=== PATIENT | male | born 1960 | race Caucasian/White ===

== ENCOUNTER 2021-09-24 22:29 | Emergency (ER) | payer OTHER ==
[~2021-09-24 22:29] MED LIST: COUMADIN10 MG PO; COUMADIN4 MG PO; DAILY VITAMIN1 TAB PO; DUO-KAPS1 CAP PO; GLUCOSAMINE & C1 CA1 PO; IBUPRIN200 MG PO; LEVAQUIN 250MG250 MG PO; LIPITOR 10MG10 MG PO; LIPITOR20 MG PO; MULTI VITAMINS1 TAB PO; NORCO 325 MG-51 TAB PO; NORCO 325 MG-7.1 TAB PO; OMEGA 31000 MG PO; PYRIDIUM 100MG100 MG PO; SUPER B COMPLEX1 TA2 PO; TYLENOL 325MG325 MG PO; VITAMIN C500 MG PO; VITAMIN D32000 I1 PO
[2021-09-24 23:25] VITALS: TEMP 97.9
[2021-09-24] MEDS ORDERED: VALIUM 10MG10 MG/TAB PO (23:52)
[2021-09-25 00:11] VITALS: BP 151/97; PULSE 73
== END 2021-09-25 00:11 | disposition home or self-care (01) ==
LOC: COL.ER 22:29
DX: M62.830 Muscle spasm of back (principal); E11.9 Type 2 diabetes mellitus without complications; I10 Essential (primary) hypertension; Z79.84 Long term (current) use of oral hypoglycemic drugs; Z88.6 Allergy status to analgesic agent

== ENCOUNTER 2024-05-26 23:39 | Emergency (ER) | payer MEDICARE, OTHER ==
[~2024-05-26] VITALS: Ht 167.6 cm; Wt 95.5 kg
[~2024-05-26 23:39] MED LIST changes: +VALIUM 10MG10 MG/TAB PO
[2024-05-26 23:51] VITALS: TEMP 97.9
[2024-05-27] MEDS ORDERED: ANUSOL-HC SUPPO25 MG RC (01:45)
[2024-05-27 02:09] VITALS: BP 133/92; PULSE 69
== END 2024-05-27 02:00 | disposition home or self-care (01) ==
LOC: COL.ER 23:39
DX: K64.4 Residual hemorrhoidal skin tags (principal)